=== PATIENT | male | born 1955 | race Caucasian/White ===

== ENCOUNTER 2019-05-28 05:28 | Day surgery (SDC) | payer BC ==
[~2019-05-28] VITALS: Ht 170.2 cm; Wt 93.0 kg
[~2019-05-28 05:28] MED LIST: ATOR40TA71 PO; FISH1CAP27 PO; MELA10TA2 PO; TAMS-1 PO
[2019-05-28] MEDS ORDERED: SODIUM CHLORIDE 0.9% 1000ML 1,000 ML IV ONE (05:50)
[2019-05-28 06:10] VITALS: BP 152/73
[2019-05-28] MEDS ORDERED: PROPOFOL 10 MG/ML 20ML VIAL IV ONE (06:15)
[2019-05-28] MEDS ORDERED: GLYCOPYRROLATE 0.2 MG/ML 5 ML VIAL ONE (06:57)
[2019-05-28 07:10] VITALS: BP 104/55
[2019-05-28 07:15] VITALS: BP 104/61
[2019-05-28 07:20] VITALS: BP 99/63
--- NOTE | 2019-05-28 07:37 | NUR ---
PT LEFT VIA WHEELCHAIR PVT CAR WITH D/C INSTRUCTIONS GIVEN TO WITH F/U
== END 2019-05-28 07:37 ==
LOC: DAH 05:28 → ENDO 05:28
PROVIDERS: ATTEND Internal Medicine
DX: Z12.11 Encounter for screening for malignant neoplasm of colon (principal); K63.5 Polyp of colon; K57.30 Diverticulosis of large intestine without perforation or abscess without bleeding; E78.5 Hyperlipidemia, unspecified; K42.9 Umbilical hernia without obstruction or gangrene; K64.0 First degree hemorrhoids; F17.200 Nicotine dependence, unspecified, uncomplicated; Z86.010 Personal history of colon polyps; Z85.828 Personal history of other malignant neoplasm of skin; Z79.899 Other long term (current) drug therapy; Z98.890 Other specified postprocedural states
CPT/HCPCS: 45380; A4215; A4222; A4223; A4606; A4615; A4663; J2704; J3490; J7030